=== PATIENT | male | born 1955 | race Caucasian/White ===

== ENCOUNTER 2024-06-11 05:32 | Day surgery (SDC) | payer OTHER, MEDICARE, BC ==
[2024-06-08 11:43] LABS: BASOPHILS # (AUTO) 0.1 X10'3 (0-0.2); EOSINOPHILS # (AUTO) 0.1 X10'3 (0-0.9); EOSINOPHILS % (AUTO) 2.2 % (0-6); LYMPHOCYTES # (AUTO) 0.9 X10'3 (1.1-4.8); LYMPHOCYTES % (AUTO) 17.9 % (21-51); MEAN CORPUSCULAR HEMOGLOBIN 31.3 PG (27.0-31.0); MEAN CORPUSCULAR HGB CONC 33.8 g/dL (33.0-36.5); MEAN CORPUSCULAR VOLUME 92.6 FL (78-98); MEAN PLATELET VOLUME 9.2 FL (7.4-10.4); MONOCYTES # (AUTO) 0.3 X10'3 (0-0.9); MONOCYTES % (AUTO) 5.5 % (2-12); NEUTROPHILS # (AUTO) 3.9 X10'3 (1.8-7.7); NEUTROPHILS % (AUTO) 73.4 % (42-75); PRE OP HEMATOCRIT 45.7 % (42.0-52.0); PRE OP HEMOGLOBIN 15.4 g/dL (14.0-17.9); PRE OP PLATELET COUNT 156 X10'3 (140-440); PRE OP WHITE BLOOD COUNT 5.3 10'3 (4.8-10.8); RED BLOOD COUNT 4.94 X10'6 (4.70-6.10); RED CELL DISTRIBUTION WIDTH 13.1 % (11.5-14.5)
[2024-06-08 11:59] LABS: ALBUMIN 3.6 G/DL (3.4-5.0); ALBUMIN/GLOBULIN RATIO 1.2 (1.1-1.5); ALKALINE PHOSPHATASE 65 IU/L (46-116); BLOOD UREA NITROGEN 21 MG/DL (7-18); BUN/CREATININE RATIO 15.2 (10.0-20.0); CALCIUM 9.4 MG/DL (8.5-10.1); CHLORIDE 105 MMOL/L (99-107); CREATININE 1.38 MG/DL (0.60-1.10); PRE OP ALT 53 U/L (30-65); PRE OP ANION GAP 7 (8-16); PRE OP AST 28 U/L (10-37); PRE OP BILIRUB, TOTAL 0.4 MG/DL (0.0-1.0); PRE OP POTASSIUM 4.3 MMOL/L (3.4-5.1); PRE OP SODIUM 140 MMOL/L (135-145); TOTAL PROTEIN 6.5 G/DL (6.4-8.2); eGFR 51 ML/MIN
[2024-06-08 12:02] LABS: PRE OP GLUCOSE 296 MG/DL (70-104)
[~2024-06-11] VITALS: Ht 399.8 cm; Wt 97.5 kg
[~2024-06-11 05:32] MED LIST: ACET-1985 PO; ASPI-611 PO; ATEN-169 PO; ATOR20TA PO; CALC-627 PO; CHOL-4 PO; DOCUMENT DATE & TIME OF BETA-BLOCKER PO ONE; EMPA10TA PO; FIBER; FINA5TAB11 PO; GLIM4TAB7 PO; LANTUS SUBCUT; LOSA-415 PO; METF-436 PO; TERA10CA4 PO
[2024-06-11 05:40] VITALS: BP 146/79; PULSE 64; RESP 16; TEMP 97.5; O2SAT 94
[2024-06-11] MEDS: famotidine 20mg tablet PO ONE (06:05)
[2024-06-11] MEDS: cefazolin 2gm/D5W 100mL 100 ML IV ONE (06:06)
[2024-06-11] MEDS: ringers solution, lacted 1,000 ML IV SCH (06:06)
[2024-06-11] MEDS ORDERED: ondansetron/PF 4mg/2ml inj IV PRN (07:15)
[2024-06-11] MEDS ORDERED: morphine 4 MG/ML inj SYRINge IV PRN (07:15)
[2024-06-11] MEDS ORDERED: morphine 2 MG/ML inj. syringe IV PRN (07:15)
[2024-06-11] MEDS ORDERED: ringers solution, lacted 1,000 ML IV SCH (07:15)
[2024-06-11] MEDS ORDERED: labetalol 20mg/4ml (5mg/ml) syringe IV PRN (07:15)
[2024-06-11] MEDS ORDERED: fentaNYL/PF 50MCG/1 ML 2ML syringe ONE (07:28)
[2024-06-11] MEDS ORDERED: MIDAZolam 1 MG/ML 5ML VIAL ONE (07:28)
[2024-06-11] MEDS ORDERED: propofol inj 20 ML IV ONE (07:29)
[2024-06-11] MEDS ORDERED: LIDOcaine 2% (20mg/ml) 5ml vial ONE (07:29)
[2024-06-11 08:05] VITALS: BP 129/70; PULSE 72; RESP 16; O2SAT 96
[2024-06-11 08:15] VITALS: BP 121/69; PULSE 59; RESP 13; O2SAT 94
[2024-06-11 08:25] VITALS: BP 120/63; PULSE 56; RESP 9; O2SAT 96
[2024-06-11 08:35] VITALS: BP 131/70; PULSE 58; RESP 11; O2SAT 95
[2024-06-11] MEDS: BUPIVAcaine/PF 2.5mg/ml (0.25%) 10ml vial ONE (14:19)
[2024-06-11] MEDS: LIDOcaine 2% (20mg/ml) 5ml vial ONE (14:20)
== END 2024-06-11 08:35 | disposition home or self-care (01) ==
LOC: PAS 05:32
PROVIDERS: ATTEND Orthopaedic Surgery Hand Surgery
DX: G56.01 Carpal tunnel syndrome, right upper limb (principal); I10 Essential (primary) hypertension; E11.9 Type 2 diabetes mellitus without complications; I48.92 Unspecified atrial flutter; M19.90 Unspecified osteoarthritis, unspecified site; Z87.891 Personal history of nicotine dependence; Z79.82 Long term (current) use of aspirin; Z79.4 Long term (current) use of insulin; Z79.84 Long term (current) use of oral hypoglycemic drugs; Z79.891 Long term (current) use of opiate analgesic; Z79.899 Other long term (current) drug therapy; Z98.890 Other specified postprocedural states; Z88.0 Allergy status to penicillin; Z83.3 Family history of diabetes mellitus; Z82.5 Family history of asthma and other chronic lower respiratory diseases; Z80.9 Family history of malignant neoplasm, unspecified
CPT/HCPCS: 36415; 64721; 80053; 82948; 85025; 93005; J0690; J2250; J2704; J3010; J3490; J7030; J7120; Z7506; Z7512; A4215; A6449